=== PATIENT | female | born 1950 | race Caucasian/White ===

== ENCOUNTER 2021-10-29 09:52 | Outpatient (CLI) | payer OTHER | END 2021-10-29 09:53 | disposition home or self-care (01) | LOC: DTY/OP 09:52 | PROVIDERS: ATTEND Family Medicine | DX: K57.92 Diverticulitis of intestine, part unspecified, without perforation or abscess without bleeding (principal) | CPT/HCPCS: 97802 ==

== ENCOUNTER 2022-09-15 12:16 | Outpatient (CLI) | payer MEDICARE ==
[2022-09-15 13:45] LABS: #Eosinphils 0.1 10x3/uL (0.0-0.5); #Monocytes 0.4 10x3/uL (0.0-1.1); #Neutrophils 3.5 10x3/uL (1.5-8.4); %Basophils 0.5 % (0.0-2.0); %Eosinophils 1.9 % (0.0-6.0); %Monocytes 6.9 % (0.0-10.0); %Neutrophils 55.4 % (40.0-75.0); Hemoglobin 12.5 g/dL (12.0-15.5); Mean Corpuscular HGB CONC 32.7 g/dL (32.0-36.0); Mean Corpuscular Hemoglobin 30.7 pg (27.0-33.0); Mean Corpuscular Volume 93.9 fl (81.6-98.3); Mean Platelet Volume 10.2 fl (7.4-10.4); Platelet Count 260 10x3/uL (150-450); RBC Distribution Width 13.1 % (11.5-14.5); Red Blood Cell (RBC) Count 4.07 10x6/uL (3.90-5.03); White Blood Cell (WBC) Count 6.4 10x3/uL (3.5-10.5)
[2022-09-15 13:57] LABS: Anion Gap 18 mmol/L (10-20); BUN (Urea Nitrogen) 10 mg/dL (9.8-20.1); Calc. Creatinine Clearance 0 mL/min (70-130); Calcium 9.7 mg/dL (7.8-10.44); Carbon Dioxide 25 mmol/L (23-31); Chloride 102 mmol/L (98-107); Estimated GFR 79; Glucose 104 mg/dL (80-115); Potassium 3.9 mmol/L (3.5-5.1); Sodium 141 mmol/L (136-145)
== END 2022-09-15 12:17 | disposition home or self-care (01) ==
LOC: LABBT 12:16
PROVIDERS: ATTEND Surgery
DX: Z01.818 Encounter for other preprocedural examination (principal); K40.90 Unilateral inguinal hernia, without obstruction or gangrene, not specified as recurrent
CPT/HCPCS: 80048; 85025; 93005; 93010

== ENCOUNTER 2022-09-17 05:54 | Day surgery (SDC) | payer MEDICARE ==
[2022-09-15 13:20] VITALS: BMI 31.9
[2022-09-17] MEDS ORDERED: fentaNYL PF 100 MCG/2 ML SYRINGE ONE ×2 (06:43→09:03)
[2022-09-17] MEDS ORDERED: EPINEPHrine 1 MG/ML AMP ONE (06:53)
[2022-09-17] MEDS ORDERED: Bupivacaine 0.25% HCL 30 ML VIAL ONE (06:53)
[2022-09-17] MEDS ORDERED: Sodium Chloride 0.9% 100 ML ONE (07:25)
[2022-09-17] MEDS ORDERED: CEFAZOLIN 2 GM VIAL ONE (07:25)
[2022-09-17] MEDS ORDERED: Ondansetron PF 4 MG/2 ML Vial ONE (07:37)
[2022-09-17] MEDS ORDERED: Glycopyrrolate 0.2 MG/ML 5 ML SYRINGE ONE (07:37)
[2022-09-17] MEDS ORDERED: ePHEDrine Sulfate 50 MG/10 ML VIAL ONE (07:37)
[2022-09-17] MEDS ORDERED: Rocuronium Bromide 10 MG/ML (10ML VIAL) ONE (07:37)
[2022-09-17] MEDS ORDERED: Dexamethasone 20 MG/5 ML VIAL ONE (07:37)
[2022-09-17] MEDS ORDERED: Ketorolac Tromethamine 30 MG/ML VIAL ONE (07:37)
[2022-09-17] MEDS ORDERED: NEOSTIGMINE 3 MG/3 ML SYR 3 MG/3 ML SYRINGE ONE (07:37)
[2022-09-17] MEDS ORDERED: PROPOFOL 200 MG/20 ML VIAL ONE (07:37)
[2022-09-17] MEDS ORDERED: Lidocaine 1% PF 5 ML VIAL ONE (07:37)
[2022-09-17] MEDS ORDERED: SUGAMMADEX SODIUM 200 MG/2 ML VIAL ONE (08:35)
[2022-09-17] MEDS ORDERED: fentaNYL 50 mcg/mL 1 mL Vial ONE (09:36)
[2022-09-17] MEDS ORDERED: HYDROcodone/Acetaminophen 5/325 mg Tablet ONE (10:11)
== END 2022-09-17 11:05 | disposition home or self-care (01) ==
LOC: SDC 05:54
PROVIDERS: ATTEND Surgery
PROC: 0YU54JZ Supplement Right Inguinal Region with Synthetic Substitute, Percutaneous Endoscopic Approach (ICD-10-PCS; principal; 2022-09-17)
DX: K40.90 Unilateral inguinal hernia, without obstruction or gangrene, not specified as recurrent (principal); I10 Essential (primary) hypertension; Z90.49 Acquired absence of other specified parts of digestive tract; Z79.899 Other long term (current) drug therapy
CPT/HCPCS: 49650; J3010; J0171; J1100; J1885; J2405; J2704; J3490; S0020

== ENCOUNTER 2022-10-03 19:30 | Outpatient (CLI) | payer MEDICARE | END 2022-10-03 19:31 | disposition home or self-care (01) | LOC: SLEEPLAB 19:30 | PROVIDERS: ATTEND Family Medicine | DX: G47.33 Obstructive sleep apnea (adult) (pediatric) (principal); R06.83 Snoring; G47.10 Hypersomnia, unspecified; E66.9 Obesity, unspecified; Z68.31 Body mass index [BMI] 31.0-31.9, adult | CPT/HCPCS: 95811 ==